=== PATIENT | male | born 1955 | race Hispanic/Latino ===

== ENCOUNTER 2020-12-28 09:42 | Outpatient (CLI) | payer OTHER ==
--- NOTE | 2020-12-28 15:15 | Magnetic Resonance Report ---
MR lumbar spine wo con INDICATION / CLINICAL INFORMATION: 65 years Male; LEFT/ RIGHT HIP JOINT PAIN,. TECHNIQUE: Multisequence, multiplanar images of the lumbar spine were obtained. COMPARISON: None available. FINDINGS: ALIGNMENT: There is no significant spondylolisthesis or scoliosis of the lumbar spine. VERTEBRAE:There is notable degenerative endplate edema anteriorly at L4-5. Milder chronic findings ar e noted at L2-3 and L3-4. VISUALIZED SPINAL CORD: The motion degrades the image quality. However, the distal left spinal cord a ppears to demonstrate appropriate signal intensity and terminates at L1. [id number] ANALYSIS: L1-2: There is no disc protrusion or significant stenosis. L2-3: There is a minimal disc bulge without significant central stenosis at. However, the disc bulges asymmetric toward the left with moderate left and mild right foraminal narrowing. L3-4: The broad-based disc bulge slightly flattens the ventral thecal sac at. There is mild to modera te foraminal narrowing, greater on the right. L4-5: The broad-based disc bulge mildly deforms the ventral thecal sac. Additionally, the foraminal n arrowing encroaches on the exiting L4 nerve root sheaths, greater on the left. L5-S1: The disc bulge and facet joint hypertrophy On the left with mild encroachment on the left lateral recess. Additionally, the findings are indicat miriam of left-sided synovial cyst on the posterior lateral neural foramen with mild encroachment on the exiting left L5 nerve root sheath. Mild narrowing is seen on the right. PARASPINAL SOFT TISSUES: No significant abnormality. ADDITIONAL FINDINGS: No epidural collections are identified. IMPRESSION: 1. There are advanced degenerative disc changes at L4-5 with neural from narrowing which encroaches o n the exiting L4 nerve root sheaths, greater on the left. 2. The degenerative changes at L5-S1 mildly encroach on the left lateral recess. Additionally, the fo raminal narrowing also mildly encroaches on the exiting left L5 nerve root sheath. 3. There are milder disc bulges with mild to moderate foraminal narrowing at L2-3 and L3-4 as detaile d above. Signer Name: Francisco Parker MD Signed: 12/28/2020 3:10 PM Workstation Name: [id number]
== END 2020-12-28 09:43 | disposition home or self-care (01) ==
LOC: MRI 09:42
PROVIDERS: ATTEND Family Medicine
DX: M51.16 Intervertebral disc disorders with radiculopathy, lumbar region (principal); M47.26 Other spondylosis with radiculopathy, lumbar region; M48.07 Spinal stenosis, lumbosacral region; M25.551 Pain in right hip; M25.552 Pain in left hip
CPT/HCPCS: 72148